=== PATIENT | male | born 1940 | race Asian ===

== ENCOUNTER 2021-01-24 17:34 | Inpatient (IN) | payer OTHER ==
[~2021-01-24] VITALS: Ht 167.6 cm; Wt 56.3 kg
[2021-01-24 19:17] LABS: Basophils # (auto) 0 10 ^3/uL (0-0.2); Basophils % (auto) 0.4 % (0.0-2.0); Eosinophils # (auto) 0 10 ^3/uL (0-0.8); Hematocrit 42.9 % (41.0-53.0); Hemoglobin 14.7 g/dL (13.5-17.5); Lymphocytes # (auto) 1.5 10 ^3/uL (0.4-5.4); Lymphocytes % (auto) 12.7 % (10.0-50.0); Mean Corpuscular Hemoglobin 33.3 pg (28.0-32.0); Mean Corpuscular Hgb Conc. 34.4 g/dL (32.0-36.0); Mean Corpuscular Volume 96.8 fL (80.0-100.0); Monocytes # (auto) 0.6 10 ^3/uL (0-1.3); Monocytes % (auto) 4.9 % (0.0-12.0); Red Blood Cells 4.43 10^6/uL (4.5-5.90); Red Cell Distribution Width 14.7 % (11.8-14.3); White Blood Cell 12.2 10^3/uL (4.4-10.8)
[2021-01-24 19:26] LABS: Albumin 2.3 g/dL (3.4-5.0); Calcium 8.6 mg/dL (8.5-10.1); Potassium 4.1 mmol/L (3.5-5.1)
[2021-01-24 19:29] LABS: BUN/Creatinine Ratio 26.3
[2021-01-24] MEDS ORDERED: ACETAMINOPHEN 650 MG RECT SUPP PR ONE (19:30)
[2021-01-24 19:39] LABS: Bilirubin, Total 0.6 mg/dL (0.2-1.0)
[2021-01-24] MEDS ORDERED: SODIUM CHLORIDE 0.9% 500 ML IV ONE (22:15)
[2021-01-24] MEDS ORDERED: PIPERACILLIN-TAZO 4.5GM 100 ML IV ONE (22:15)
[2021-01-24] MEDS ORDERED: VANCOMYCIN HCL 1000 MG VL IR ONE (22:15)
[2021-01-24 22:26] LABS: Urine Amorphous Crystal FEW /hpf (None Seen); Urine Bacteria FEW /hpf (None Seen); Urine Blood 2+ /uL (Negative); Urine Specific Gravity 1.015 (1.001-1.035); Urine WBC 138 /hpf (0 - 3); Urine WBC Clumps PRESENT /hpf (None Seen)
[2021-01-24] MEDS ORDERED: VANCOMYCIN 1GM/250ML 250 ML IV ONE (22:45)
[2021-01-24] MEDS ORDERED: NITROGLYCERIN 0.4 MG SL TAB SL PRN (23:00)
[2021-01-24] MEDS ORDERED: ONDANSETRON HCL 4 MG/2 ML VIAL IV PRN (23:00)
[2021-01-24] MEDS ORDERED: MORPHINE SULFATE INJECTION 2 MG/ML SYRG IV PRN (23:00)
[2021-01-25 05:56] LABS: Basophils # (auto) 0 10 ^3/uL (0-0.2); Basophils % (auto) 0.4 % (0.0-2.0); Eosinophils # (auto) 0 10 ^3/uL (0-0.8); Eosinophils % (auto) 0.1 % (0.0-7.0); Hematocrit 43.3 % (41.0-53.0); Hemoglobin 14.8 g/dL (13.5-17.5); Lymphocytes % (auto) 17.9 % (10.0-50.0); Mean Corpuscular Hemoglobin 33.5 pg (28.0-32.0); Mean Corpuscular Hgb Conc. 34.2 g/dL (32.0-36.0); Monocytes # (auto) 0.8 10 ^3/uL (0-1.3); Monocytes % (auto) 7.5 % (0.0-12.0); Neutrophils # (auto) 8.2 10 ^3/uL (1.6-8.6); Neutrophils % (auto) 74.1 % (37.0-80.0); Nucleated Red Blood Cells % 0.2 %; Red Blood Cells 4.42 10^6/uL (4.5-5.90); Red Cell Distribution Width 14.5 % (11.8-14.3)
[2021-01-25] MEDS ORDERED: LABETALOL HCL 5 MG/ML 4ML SYRINGE IV ONE (06:15)
[2021-01-25] MEDS: cefTRIAXone 1GM/50ML D5W 50 ML IV SCH (09:00)
[2021-01-25] MEDS: ISOSORBIDE MONONITRATE ER 60 MG TAB PO SCH (10:00)
[2021-01-25] MEDS: PANTOPRAZOLE 40 MG TAB PO SCH (10:00)
[2021-01-25] MEDS: CLOPIDOGREL BISULFATE 75 MG TAB PO SCH (10:00)
[2021-01-25] MEDS ORDERED: ASPirin 81 mg TAB PO SCH (10:00)
[2021-01-25] MEDS: METOPROLOL SUCCINATE XL 50 MG TAB PO SCH (10:00)
[2021-01-25] MEDS ORDERED: MAGN400T40 PO (10:01)
[2021-01-25] MEDS ORDERED: DONE5TAB80 PO (10:01)
[2021-01-25] MEDS ORDERED: CLOP75TA70 PO (10:01)
[2021-01-25] MEDS ORDERED: DILT90CA PO (10:01)
[2021-01-25] MEDS ORDERED: RIVA2.5T PO (10:01)
[2021-01-25] MEDS ORDERED: ISOS1TAB28 PO (10:01)
[2021-01-25] MEDS ORDERED: ASPI1TAB91 PO (10:01)
[2021-01-25] MEDS ORDERED: METO-289 PO (10:01)
[2021-01-25] MEDS ORDERED: ATOR-47 PO (10:01)
[2021-01-25] MEDS ORDERED: SODIUM CHLORIDE 0.9% 1,000 ML IV SCH (12:00)
[2021-01-25 12:22] LABS: Potassium 5.2 mmol/L (3.5-5.1); Sodium 142 mmol/L (136-145)
[2021-01-25 12:23] LABS: Anion Gap 10 (5-15); BUN/Creatinine Ratio 26.6; Blood Urea Nitrogen 65 mg/dL (7-18); Calcium 8.1 mg/dL (8.5-10.1); Carbon Dioxide 19 mmol/L (21-32); Chloride 113 mmol/L (98-107); GFR African American 33 mL/min; GFR Non-African American 27 mL/min; Glucose 148 mg/dL (74-106)
[2021-01-25] MEDS ORDERED: LACTULOSE 20Gm/30ML SOLN PO ONE (14:15)
[2021-01-25 22:00] VITALS: BP 168/95
[2021-01-25] MEDS: LACTULOSE 20Gm/30ML SOLN PO SCH (22:19)
[2021-01-25] MEDS: DONEPEZIL HYDROCHLORIDE 5 MG TAB PO SCH (22:19)
[2021-01-25] MEDS: ATORVASTATIN 20 MG TAB PO SCH (22:20)
[2021-01-26 05:00] VITALS: BP 166/105
[2021-01-26 07:00] VITALS: BP 141/60
[2021-01-26 09:00] VITALS: BP 171/101
[2021-01-26] MEDS ORDERED: LINEZOLID 600MG/300ML 300 ML IV SCH (10:00)
[2021-01-26 10:10] LABS: Basophils # (auto) 0.1 10 ^3/uL (0-0.2); Basophils % (auto) 0.7 % (0.0-2.0); Eosinophils # (auto) 0.1 10 ^3/uL (0-0.8); Eosinophils % (auto) 0.8 % (0.0-7.0); Hematocrit 43.1 % (41.0-53.0); Hemoglobin 14.4 g/dL (13.5-17.5); Lymphocytes # (auto) 2.2 10 ^3/uL (0.4-5.4); Lymphocytes % (auto) 26.5 % (10.0-50.0); Mean Corpuscular Hemoglobin 32.8 pg (28.0-32.0); Mean Corpuscular Hgb Conc. 33.5 g/dL (32.0-36.0); Mean Corpuscular Volume 97.8 fL (80.0-100.0); Monocytes # (auto) 0.6 10 ^3/uL (0-1.3); Monocytes % (auto) 7.2 % (0.0-12.0); Neutrophils # (auto) 5.4 10 ^3/uL (1.6-8.6); Neutrophils % (auto) 64.8 % (37.0-80.0); Nucleated Red Blood Cells % 0.1 %; Red Cell Distribution Width 14.2 % (11.8-14.3); White Blood Cell 8.4 10^3/uL (4.4-10.8)
[2021-01-26] MEDS: CLOPIDOGREL BISULFATE 75 MG TAB PO SCH (10:11)
[2021-01-26] MEDS: LACTULOSE 20Gm/30ML SOLN PO SCH ×2 (10:11→21:51)
[2021-01-26] MEDS: cefTRIAXone 1GM/50ML D5W 50 ML IV SCH (10:11)
[2021-01-26] MEDS: ISOSORBIDE MONONITRATE ER 60 MG TAB PO SCH (10:11)
[2021-01-26] MEDS: METOPROLOL SUCCINATE XL 50 MG TAB PO SCH (10:12)
[2021-01-26] MEDS: PANTOPRAZOLE 40 MG TAB PO SCH (10:12)
[2021-01-26 10:25] LABS: BUN/Creatinine Ratio 32.5; Calcium 8.6 mg/dL (8.5-10.1); Potassium 3.7 mmol/L (3.5-5.1)
[2021-01-26] MEDS ORDERED: amLODIPine BESYLATE 5 MG TAB PO ONE (10:45)
[2021-01-26] MEDS ORDERED: LORazepam 2MG/ML-1ML VIAL IV ONE (10:45)
[2021-01-26] MEDS: POTASSIUM CHLORIDE 20 MEQ in D5W 5% 1,000 ML IV SCH (16:05)
[2021-01-26 17:00] VITALS: BP 143/99
[2021-01-26 20:09] LABS: Cholesterol 152 mg/dL (< 200)
[2021-01-26 20:12] LABS: HDL Cholesterol 29 mg/dL (40-59); LDL Cholesterol 94 mg/dL (< 100); Triglycerides 167 mg/dL (< 150)
[2021-01-26] MEDS: ATORVASTATIN 20 MG TAB PO SCH (21:51)
[2021-01-26] MEDS: DONEPEZIL HYDROCHLORIDE 5 MG TAB PO SCH (21:51)
[2021-01-26] MEDS: MEROPENEM 1GM IVPB 100 ML IV SCH (21:51)
[2021-01-26 22:00] VITALS: BP 142/93
[2021-01-27] MEDS: POTASSIUM CHLORIDE 20 MEQ in D5W 5% 1,000 ML IV SCH ×2 (02:28→03:00)
[2021-01-27 05:00] VITALS: BP 145/91
[2021-01-27 07:22] LABS: Basophils # (auto) 0 10 ^3/uL (0-0.2); Basophils % (auto) 0.5 % (0.0-2.0); Eosinophils # (auto) 0.1 10 ^3/uL (0-0.8); Eosinophils % (auto) 0.9 % (0.0-7.0); Hematocrit 40.5 % (41.0-53.0); Hemoglobin 13.9 g/dL (13.5-17.5); Lymphocytes % (auto) 27.3 % (10.0-50.0); Mean Corpuscular Hemoglobin 32.9 pg (28.0-32.0); Mean Corpuscular Hgb Conc. 34.3 g/dL (32.0-36.0); Mean Corpuscular Volume 96.1 fL (80.0-100.0); Monocytes # (auto) 0.5 10 ^3/uL (0-1.3); Monocytes % (auto) 6.3 % (0.0-12.0); Neutrophils # (auto) 4.8 10 ^3/uL (1.6-8.6); Nucleated Red Blood Cells % 0.1 %; Red Blood Cells 4.21 10^6/uL (4.5-5.90); Red Cell Distribution Width 13.9 % (11.8-14.3); White Blood Cell 7.4 10^3/uL (4.4-10.8)
[2021-01-27 07:37] LABS: BUN/Creatinine Ratio 32.6; Calcium 8.4 mg/dL (8.5-10.1); Potassium 3.8 mmol/L (3.5-5.1)
[2021-01-27] MEDS: MEROPENEM 1GM IVPB 100 ML IV SCH ×2 (10:09→22:37)
[2021-01-27] MEDS: ENOXAPARIN SOD 40 MG/0.4 ML SYRINGE SC SCH (10:09)
[2021-01-27] MEDS: PANTOPRAZOLE 40 MG TAB PO SCH (10:10)
[2021-01-27] MEDS: ISOSORBIDE MONONITRATE ER 60 MG TAB PO SCH (10:10)
[2021-01-27] MEDS: CLOPIDOGREL BISULFATE 75 MG TAB PO SCH (10:10)
[2021-01-27] MEDS: METOPROLOL SUCCINATE XL 50 MG TAB PO SCH (10:10)
[2021-01-27] MEDS: amLODIPine BESYLATE 5 MG TAB PO SCH (10:10)
[2021-01-27 13:00] VITALS: BP 106/75
[2021-01-27 14:05] LABS: INR 1.07 (0.9-1.15); Partial Thromboplastin Time 39.9 sec (23.6-33.0)
[2021-01-27 17:00] VITALS: BP 143/91
[2021-01-27 22:00] VITALS: BP 138/82
[2021-01-27] MEDS: DONEPEZIL HYDROCHLORIDE 5 MG TAB PO SCH (22:38)
[2021-01-27] MEDS: ATORVASTATIN 20 MG TAB PO SCH (22:38)
[2021-01-28 05:00] VITALS: BP 137/78
[2021-01-28] MEDS: POTASSIUM CHLORIDE 20 MEQ in D5W 5% 1,000 ML IV SCH ×3 (05:21→18:52)
[2021-01-28 06:18] LABS: Basophils # (auto) 0.1 10 ^3/uL (0-0.2); Basophils % (auto) 0.8 % (0.0-2.0); Eosinophils # (auto) 0.1 10 ^3/uL (0-0.8); Hematocrit 41.7 % (41.0-53.0); Hemoglobin 14.2 g/dL (13.5-17.5); Lymphocytes # (auto) 2.1 10 ^3/uL (0.4-5.4); Lymphocytes % (auto) 29.6 % (10.0-50.0); Mean Corpuscular Hemoglobin 32.5 pg (28.0-32.0); Mean Corpuscular Hgb Conc. 34.1 g/dL (32.0-36.0); Mean Corpuscular Volume 95.5 fL (80.0-100.0); Monocytes # (auto) 0.6 10 ^3/uL (0-1.3); Monocytes % (auto) 7.9 % (0.0-12.0); Neutrophils # (auto) 4.2 10 ^3/uL (1.6-8.6); Neutrophils % (auto) 59.7 % (37.0-80.0); Nucleated Red Blood Cells % 0.1 %; Red Blood Cells 4.37 10^6/uL (4.5-5.90); Red Cell Distribution Width 13.9 % (11.8-14.3)
[2021-01-28 06:38] LABS: Potassium 3.7 mmol/L (3.5-5.1)
[2021-01-28 06:42] LABS: Albumin 2.1 g/dL (3.4-5.0); BUN/Creatinine Ratio 23.9
[2021-01-28 06:45] LABS: Bilirubin, Total 0.7 mg/dL (0.2-1.0); Total Protein 6.1 g/dL (6.4-8.2)
[2021-01-28 07:16] LABS: INR 1.03 (0.9-1.15)
[2021-01-28 09:00] VITALS: BP 153/89
[2021-01-28] MEDS: MEROPENEM 1GM IVPB 100 ML IV SCH ×2 (10:33→22:24)
[2021-01-28] MEDS: ISOSORBIDE MONONITRATE ER 60 MG TAB PO SCH (10:37)
[2021-01-28] MEDS: amLODIPine BESYLATE 5 MG TAB PO SCH (10:38)
[2021-01-28] MEDS: CLOPIDOGREL BISULFATE 75 MG TAB PO SCH (10:38)
[2021-01-28] MEDS: METOPROLOL SUCCINATE XL 50 MG TAB PO SCH (10:39)
[2021-01-28] MEDS: PANTOPRAZOLE 40 MG TAB PO SCH (10:39)
[2021-01-28] MEDS: ENOXAPARIN SOD 40 MG/0.4 ML SYRINGE SC SCH (10:40)
[2021-01-28 13:00] VITALS: BP 143/86
[2021-01-28 17:00] VITALS: BP 140/85
[2021-01-28 22:00] VITALS: BP 120/78
[2021-01-28] MEDS: DONEPEZIL HYDROCHLORIDE 5 MG TAB PO SCH (22:24)
[2021-01-28] MEDS: ATORVASTATIN 20 MG TAB PO SCH (22:24)
[2021-01-29 05:00] VITALS: BP 133/84
[2021-01-29 08:25] LABS: Potassium 5.3 mmol/L (3.5-5.1)
[2021-01-29 08:29] LABS: BUN/Creatinine Ratio 20.3; Calcium 7.6 mg/dL (8.5-10.1)
[2021-01-29 09:00] VITALS: BP 138/99
[2021-01-29] MEDS: METOPROLOL SUCCINATE XL 50 MG TAB PO SCH (10:00)
[2021-01-29] MEDS: CLOPIDOGREL BISULFATE 75 MG TAB PO SCH (10:00)
[2021-01-29] MEDS: PANTOPRAZOLE 40 MG TAB PO SCH (10:00)
[2021-01-29] MEDS: ISOSORBIDE MONONITRATE ER 60 MG TAB PO SCH (10:00)
[2021-01-29] MEDS: amLODIPine BESYLATE 5 MG TAB PO SCH (10:00)
[2021-01-29] MEDS: ENOXAPARIN SOD 40 MG/0.4 ML SYRINGE SC SCH (10:00)
[2021-01-29 10:03] LABS: Folate (Folic Acid) 9.73 ng/mL (5.38-24)
[2021-01-29 11:38] LABS: Basophils # (auto) 0 10 ^3/uL (0-0.2); Basophils % (auto) 0.4 % (0.0-2.0); Eosinophils # (auto) 0.2 10 ^3/uL (0-0.8); Eosinophils % (auto) 2.7 % (0.0-7.0); Hematocrit 37.3 % (41.0-53.0); Hemoglobin 13.2 g/dL (13.5-17.5); Lymphocytes # (auto) 2.2 10 ^3/uL (0.4-5.4); Mean Corpuscular Hemoglobin 33.4 pg (28.0-32.0); Mean Corpuscular Hgb Conc. 35.4 g/dL (32.0-36.0); Mean Corpuscular Volume 94.4 fL (80.0-100.0); Monocytes # (auto) 0.4 10 ^3/uL (0-1.3); Monocytes % (auto) 4.5 % (0.0-12.0); Neutrophils # (auto) 5.4 10 ^3/uL (1.6-8.6); Neutrophils % (auto) 65.4 % (37.0-80.0); Nucleated Red Blood Cells % 0.1 %; Red Blood Cells 3.95 10^6/uL (4.5-5.90); Red Cell Distribution Width 13.6 % (11.8-14.3); White Blood Cell 8.3 10^3/uL (4.4-10.8)
[2021-01-29] MEDS: AMPICILLIN INJ 1 GM in SODIUM CHL 0.9% 50 ML IV SCH ×2 (12:00→18:04)
[2021-01-29 13:00] VITALS: BP 140/82
[2021-01-29] MEDS ORDERED: fentaNYL CITRATE 100 MCG/2 ML VL IV ONE (14:00)
[2021-01-29] MEDS ORDERED: MIDAZOLAM HCL 2MG/2ML 2ml VIAL (1mg/ml) IV ONE (14:00)
[2021-01-29 17:00] VITALS: BP 139/79
[2021-01-29] MEDS ORDERED: RIVAROXABAN 20 MG TAB PO SCH (18:00)
[2021-01-29 22:00] VITALS: BP 150/94
[2021-01-29] MEDS: DONEPEZIL HYDROCHLORIDE 5 MG TAB PO SCH (22:00)
[2021-01-29] MEDS: APIXABAN 2.5 MG TAB PO SCH (22:00)
[2021-01-29] MEDS: ATORVASTATIN 20 MG TAB PO SCH (22:00)
[2021-01-30] MEDS: AMPICILLIN INJ 1 GM in SODIUM CHL 0.9% 50 ML IV SCH ×5 (00:34→23:27)
[2021-01-30 05:00] VITALS: BP 139/86
[2021-01-30 09:00] VITALS: BP 154/82
[2021-01-30] MEDS: APIXABAN 2.5 MG TAB PO SCH ×2 (10:00→21:52)
[2021-01-30] MEDS: ACETAMINOPHEN 325 MG TAB PO PRN (10:28)
[2021-01-30] MEDS: METOPROLOL SUCCINATE XL 50 MG TAB PO SCH (10:51)
[2021-01-30] MEDS: ISOSORBIDE MONONITRATE ER 60 MG TAB PO SCH (10:51)
[2021-01-30] MEDS: PANTOPRAZOLE 40 MG TAB PO SCH (10:51)
[2021-01-30] MEDS: amLODIPine BESYLATE 5 MG TAB PO SCH (10:52)
[2021-01-30 13:00] VITALS: BP 112/66
[2021-01-30 16:51] VITALS: BP 102/68
[2021-01-30] MEDS: DONEPEZIL HYDROCHLORIDE 5 MG TAB PO SCH (21:51)
[2021-01-30] MEDS: ATORVASTATIN 20 MG TAB PO SCH (21:52)
[2021-01-30 21:53] VITALS: BP 119/71
[2021-01-31 05:05] VITALS: BP 117/77
[2021-01-31] MEDS: AMPICILLIN INJ 1 GM in SODIUM CHL 0.9% 50 ML IV SCH ×4 (05:15→23:55)
[2021-01-31 06:52] LABS: Potassium 4.1 mmol/L (3.5-5.1)
[2021-01-31 06:56] LABS: BUN/Creatinine Ratio 21.5; Calcium 8.2 mg/dL (8.5-10.1)
[2021-01-31] MEDS: ISOSORBIDE MONONITRATE ER 60 MG TAB PO SCH (10:05)
[2021-01-31] MEDS: PANTOPRAZOLE 40 MG TAB PO SCH (10:05)
[2021-01-31] MEDS: APIXABAN 2.5 MG TAB PO SCH ×2 (10:06→21:51)
[2021-01-31] MEDS: amLODIPine BESYLATE 5 MG TAB PO SCH (10:06)
[2021-01-31] MEDS: METOPROLOL SUCCINATE XL 50 MG TAB PO SCH (10:06)
[2021-01-31] MEDS: ACETAMINOPHEN 325 MG TAB PO PRN (11:39)
[2021-01-31] MEDS: HYDROcodone-ACET 5/325MG TAB PO PRN (14:40)
[2021-01-31] MEDS ORDERED: LIDOCAINE 5% TOPICAL PATCH TOP ONE (15:15)
[2021-01-31] MEDS: DONEPEZIL HYDROCHLORIDE 5 MG TAB PO SCH (21:50)
[2021-01-31] MEDS: ATORVASTATIN 20 MG TAB PO SCH (21:51)
[2021-01-31 22:00] VITALS: BP 118/77
[2021-02-01] MEDS: AMPICILLIN INJ 1 GM in SODIUM CHL 0.9% 50 ML IV SCH ×3 (05:19→17:48)
[2021-02-01 09:00] VITALS: BP 139/82
[2021-02-01] MEDS ORDERED: HALOPERIDOL LACTATE 5 MG/ML INJ VIAL IM ONE (10:00)
[2021-02-01] MEDS ORDERED: HALOPERIDOL LACTATE 5 MG/ML INJ VIAL ONE (10:00)
[2021-02-01] MEDS: ISOSORBIDE MONONITRATE ER 60 MG TAB PO SCH (10:55)
[2021-02-01] MEDS: METOPROLOL SUCCINATE XL 50 MG TAB PO SCH (10:56)
[2021-02-01] MEDS: amLODIPine BESYLATE 5 MG TAB PO SCH (10:56)
[2021-02-01] MEDS: PANTOPRAZOLE 40 MG TAB PO SCH (10:56)
[2021-02-01] MEDS: APIXABAN 2.5 MG TAB PO SCH ×2 (10:56→22:19)
[2021-02-01] MEDS: LIDOCAINE 5% TOPICAL PATCH TOP SCH (10:56)
[2021-02-01 13:00] VITALS: BP 143/87
[2021-02-01] MEDS ORDERED: HALOPERIDOL 1 MG TAB PO PRN (14:45)
[2021-02-01 17:00] VITALS: BP 129/79
[2021-02-01] MEDS: ACETAMINOPHEN 325 MG TAB PO PRN (19:55)
[2021-02-01 22:00] VITALS: BP 108/67
[2021-02-01] MEDS: ATORVASTATIN 20 MG TAB PO SCH (22:19)
[2021-02-01] MEDS: DONEPEZIL HYDROCHLORIDE 5 MG TAB PO SCH (22:19)
[2021-02-02] MEDS: AMPICILLIN INJ 1 GM in SODIUM CHL 0.9% 50 ML IV SCH ×4 (00:28→18:33)
[2021-02-02 05:00] VITALS: BP 116/74
[2021-02-02] MEDS: LACTULOSE 20Gm/30ML SOLN PO SCH (10:38)
[2021-02-02] MEDS: APIXABAN 2.5 MG TAB PO SCH ×2 (10:38→21:56)
[2021-02-02] MEDS: LIDOCAINE 5% TOPICAL PATCH TOP SCH (10:39)
[2021-02-02] MEDS: ISOSORBIDE MONONITRATE ER 60 MG TAB PO SCH (10:39)
[2021-02-02] MEDS: METOPROLOL SUCCINATE XL 50 MG TAB PO SCH (10:39)
[2021-02-02] MEDS: PANTOPRAZOLE 40 MG TAB PO SCH (10:39)
[2021-02-02] MEDS: amLODIPine BESYLATE 5 MG TAB PO SCH (10:39)
[2021-02-02] MEDS: HYDROcodone-ACET 5/325MG TAB PO PRN ×2 (13:04→21:04)
[2021-02-02] MEDS: DONEPEZIL HYDROCHLORIDE 5 MG TAB PO SCH (21:55)
[2021-02-02] MEDS: ATORVASTATIN 20 MG TAB PO SCH (21:56)
[2021-02-02 22:00] VITALS: BP 131/82
[2021-02-03] MEDS: AMPICILLIN INJ 1 GM in SODIUM CHL 0.9% 50 ML IV SCH ×4 (00:36→18:29)
[2021-02-03 05:00] VITALS: BP 140/78
[2021-02-03 09:00] VITALS: BP 131/90
[2021-02-03] MEDS: LACTULOSE 20Gm/30ML SOLN PO SCH (09:51)
[2021-02-03] MEDS: APIXABAN 2.5 MG TAB PO SCH ×2 (09:51→21:15)
[2021-02-03] MEDS: amLODIPine BESYLATE 5 MG TAB PO SCH (09:52)
[2021-02-03] MEDS: METOPROLOL SUCCINATE XL 50 MG TAB PO SCH (09:52)
[2021-02-03] MEDS: ISOSORBIDE MONONITRATE ER 60 MG TAB PO SCH (09:53)
[2021-02-03] MEDS: PANTOPRAZOLE 40 MG TAB PO SCH (09:53)
[2021-02-03] MEDS: LIDOCAINE 5% TOPICAL PATCH TOP SCH (09:53)
[2021-02-03 13:00] VITALS: BP 139/88
[2021-02-03] MEDS: HYDROcodone-ACET 5/325MG TAB PO PRN ×2 (13:01→22:13)
[2021-02-03 17:00] VITALS: BP 136/92
[2021-02-03] MEDS: DONEPEZIL HYDROCHLORIDE 5 MG TAB PO SCH (21:15)
[2021-02-03] MEDS: ATORVASTATIN 20 MG TAB PO SCH (21:15)
[2021-02-03 22:00] VITALS: BP 127/87
[2021-02-04] MEDS: AMPICILLIN INJ 1 GM in SODIUM CHL 0.9% 50 ML IV SCH ×5 (00:03→23:46)
[2021-02-04 05:00] VITALS: BP 130/80
[2021-02-04 09:00] VITALS: BP 153/90
[2021-02-04] MEDS: LACTULOSE 20Gm/30ML SOLN PO SCH (09:31)
[2021-02-04] MEDS: APIXABAN 2.5 MG TAB PO SCH ×2 (09:32→21:33)
[2021-02-04] MEDS: METOPROLOL SUCCINATE XL 50 MG TAB PO SCH (09:32)
[2021-02-04] MEDS: amLODIPine BESYLATE 5 MG TAB PO SCH (09:32)
[2021-02-04] MEDS: PANTOPRAZOLE 40 MG TAB PO SCH (09:32)
[2021-02-04] MEDS: LIDOCAINE 5% TOPICAL PATCH TOP SCH (09:33)
[2021-02-04] MEDS: ISOSORBIDE MONONITRATE ER 60 MG TAB PO SCH (09:33)
[2021-02-04 13:00] VITALS: BP 129/69
[2021-02-04] MEDS: HYDROcodone-ACET 5/325MG TAB PO PRN (15:10)
[2021-02-04 17:00] VITALS: BP 131/89
[2021-02-04] MEDS: ATORVASTATIN 20 MG TAB PO SCH (21:32)
[2021-02-04] MEDS: DONEPEZIL HYDROCHLORIDE 5 MG TAB PO SCH (21:32)
[2021-02-04 22:00] VITALS: BP 126/84
[2021-02-05] MEDS: HYDROcodone-ACET 5/325MG TAB PO PRN ×3 (04:31→22:02)
[2021-02-05 04:40] VITALS: BP 138/89
[2021-02-05] MEDS: AMPICILLIN INJ 1 GM in SODIUM CHL 0.9% 50 ML IV SCH ×4 (05:38→23:31)
[2021-02-05 08:50] VITALS: BP 127/79
[2021-02-05] MEDS: LACTULOSE 20Gm/30ML SOLN PO SCH (10:00)
[2021-02-05] MEDS: LIDOCAINE 5% TOPICAL PATCH TOP SCH (10:00)
[2021-02-05] MEDS: ISOSORBIDE MONONITRATE ER 60 MG TAB PO SCH (10:00)
[2021-02-05] MEDS: METOPROLOL SUCCINATE XL 50 MG TAB PO SCH (10:00)
[2021-02-05] MEDS: APIXABAN 2.5 MG TAB PO SCH ×2 (10:00→22:02)
[2021-02-05] MEDS: PANTOPRAZOLE 40 MG TAB PO SCH (10:00)
[2021-02-05] MEDS: amLODIPine BESYLATE 5 MG TAB PO SCH (10:00)
[2021-02-05 12:21] VITALS: BP 132/84
[2021-02-05 16:28] VITALS: BP 130/79
[2021-02-05 22:00] VITALS: BP 155/90
[2021-02-05] MEDS ORDERED: QUEtiapine FUMARATE 25 MG TAB PO SCH (22:00)
[2021-02-05] MEDS: ATORVASTATIN 20 MG TAB PO SCH (22:02)
[2021-02-05] MEDS: DONEPEZIL HYDROCHLORIDE 5 MG TAB PO SCH (22:02)
[2021-02-06 05:00] VITALS: BP 158/93
[2021-02-06] MEDS: AMPICILLIN INJ 1 GM in SODIUM CHL 0.9% 50 ML IV SCH ×3 (05:32→17:37)
[2021-02-06] MEDS: HYDROcodone-ACET 5/325MG TAB PO PRN (06:48)
[2021-02-06 08:34] VITALS: BP 166/106
[2021-02-06] MEDS: APIXABAN 2.5 MG TAB PO SCH ×2 (10:00→21:42)
[2021-02-06] MEDS: LACTULOSE 20Gm/30ML SOLN PO SCH (10:00)
[2021-02-06] MEDS: LIDOCAINE 5% TOPICAL PATCH TOP SCH (10:00)
[2021-02-06] MEDS: PANTOPRAZOLE 40 MG TAB PO SCH (10:00)
[2021-02-06] MEDS: METOPROLOL SUCCINATE XL 50 MG TAB PO SCH (10:00)
[2021-02-06] MEDS: ISOSORBIDE MONONITRATE ER 60 MG TAB PO SCH (10:00)
[2021-02-06] MEDS: amLODIPine BESYLATE 5 MG TAB PO SCH (10:00)
[2021-02-06 13:00] VITALS: BP 125/78
[2021-02-06 17:04] VITALS: BP 132/69
[2021-02-06] MEDS: ATORVASTATIN 20 MG TAB PO SCH (21:42)
[2021-02-06] MEDS: DONEPEZIL HYDROCHLORIDE 5 MG TAB PO SCH (21:42)
[2021-02-06 22:00] VITALS: BP 147/93
[2021-02-07 05:18] VITALS: BP 139/90
[2021-02-07] MEDS: AMPICILLIN INJ 1 GM in SODIUM CHL 0.9% 50 ML IV SCH ×4 (05:37→13:41)
[2021-02-07 08:00] VITALS: BP 148/82
[2021-02-07 09:00] VITALS: BP 134/92
[2021-02-07] MEDS: LIDOCAINE 5% TOPICAL PATCH TOP SCH (10:48)
[2021-02-07] MEDS: ISOSORBIDE MONONITRATE ER 60 MG TAB PO SCH (10:49)
[2021-02-07] MEDS: PANTOPRAZOLE 40 MG TAB PO SCH (10:50)
[2021-02-07] MEDS: amLODIPine BESYLATE 5 MG TAB PO SCH (10:50)
[2021-02-07] MEDS: APIXABAN 2.5 MG TAB PO SCH ×2 (10:50→21:20)
[2021-02-07] MEDS: LACTULOSE 20Gm/30ML SOLN PO SCH (10:50)
[2021-02-07] MEDS: METOPROLOL SUCCINATE XL 50 MG TAB PO SCH (10:50)
[2021-02-07 13:00] VITALS: BP 132/88
[2021-02-07 17:00] VITALS: BP 146/81
[2021-02-07] MEDS: DONEPEZIL HYDROCHLORIDE 5 MG TAB PO SCH (21:20)
[2021-02-07] MEDS: ATORVASTATIN 20 MG TAB PO SCH (21:23)
[2021-02-07 22:00] VITALS: BP 136/88
[2021-02-08 05:00] VITALS: BP 138/78
[2021-02-08 08:00] VITALS: BP 119/76
[2021-02-08 08:44] VITALS: BP 119/76
[2021-02-08] MEDS: ISOSORBIDE MONONITRATE ER 60 MG TAB PO SCH (11:27)
[2021-02-08] MEDS: amLODIPine BESYLATE 5 MG TAB PO SCH (11:27)
[2021-02-08] MEDS: APIXABAN 2.5 MG TAB PO SCH ×2 (11:27→21:51)
[2021-02-08] MEDS: METOPROLOL SUCCINATE XL 50 MG TAB PO SCH (11:28)
[2021-02-08] MEDS: PANTOPRAZOLE 40 MG TAB PO SCH (11:28)
[2021-02-08 12:31] VITALS: BP 120/70
[2021-02-08 17:16] VITALS: BP 138/66
[2021-02-08] MEDS: DONEPEZIL HYDROCHLORIDE 5 MG TAB PO SCH (21:50)
[2021-02-08] MEDS: ATORVASTATIN 20 MG TAB PO SCH (21:51)
[2021-02-08 22:00] VITALS: BP 113/79
[2021-02-09 05:00] VITALS: BP 116/72
[2021-02-09] MEDS: PANTOPRAZOLE 40 MG TAB PO SCH (08:52)
[2021-02-09] MEDS: APIXABAN 2.5 MG TAB PO SCH ×2 (08:52→21:41)
[2021-02-09] MEDS: amLODIPine BESYLATE 5 MG TAB PO SCH (08:55)
[2021-02-09] MEDS: ISOSORBIDE MONONITRATE ER 60 MG TAB PO SCH (08:55)
[2021-02-09] MEDS: METOPROLOL SUCCINATE XL 50 MG TAB PO SCH (08:56)
[2021-02-09 09:00] VITALS: BP 117/62
[2021-02-09 13:00] VITALS: BP 130/79
[2021-02-09 16:48] VITALS: BP 147/80
[2021-02-09] MEDS: DONEPEZIL HYDROCHLORIDE 5 MG TAB PO SCH (21:40)
[2021-02-09] MEDS ORDERED: ATORVASTATIN 20 MG TAB PO SCH (22:00)
[2021-02-09 22:11] VITALS: BP 129/81
[2021-02-10 05:08] VITALS: BP 135/91
[2021-02-10 06:47] LABS: Basophils # (auto) 0.1 10 ^3/uL (0-0.2); Basophils % (auto) 1.3 % (0.0-2.0); Eosinophils # (auto) 0.2 10 ^3/uL (0-0.8); Eosinophils % (auto) 3.4 % (0.0-7.0); Hematocrit 40.6 % (41.0-53.0); Hemoglobin 13.6 g/dL (13.5-17.5); Lymphocytes # (auto) 1.9 10 ^3/uL (0.4-5.4); Lymphocytes % (auto) 32.7 % (10.0-50.0); Mean Corpuscular Hemoglobin 32.1 pg (28.0-32.0); Mean Corpuscular Hgb Conc. 33.5 g/dL (32.0-36.0); Mean Corpuscular Volume 95.9 fL (80.0-100.0); Monocytes # (auto) 0.4 10 ^3/uL (0-1.3); Monocytes % (auto) 6.9 % (0.0-12.0); Neutrophils # (auto) 3.3 10 ^3/uL (1.6-8.6); Neutrophils % (auto) 55.7 % (37.0-80.0); Nucleated Red Blood Cells % 0.1 %; Red Blood Cells 4.23 10^6/uL (4.5-5.90); Red Cell Distribution Width 14.3 % (11.8-14.3); White Blood Cell 5.9 10^3/uL (4.4-10.8)
[2021-02-10 06:53] LABS: Potassium 4.1 mmol/L (3.5-5.1)
[2021-02-10 06:58] LABS: BUN/Creatinine Ratio 20.1; Calcium 8.3 mg/dL (8.5-10.1); Magnesium 2.4 mg/dL (1.6-2.6); Phosphorus 2.6 mg/dL (2.5-4.90)
[2021-02-10 09:00] VITALS: BP 127/71
[2021-02-10] MEDS: APIXABAN 2.5 MG TAB PO SCH (10:32)
[2021-02-10] MEDS: amLODIPine BESYLATE 5 MG TAB PO SCH (10:33)
[2021-02-10] MEDS: ISOSORBIDE MONONITRATE ER 60 MG TAB PO SCH (10:33)
[2021-02-10] MEDS: METOPROLOL SUCCINATE XL 50 MG TAB PO SCH (10:34)
[2021-02-10] MEDS: PANTOPRAZOLE 40 MG TAB PO SCH (10:34)
[2021-02-10 12:51] VITALS: BP 124/83
[2021-02-10] MEDS: HYDROcodone-ACET 5/325MG TAB PO PRN (13:33)
== END 2021-02-10 16:33 | DRG 871 ==
LOC: EDBD 17:34 → ER 17:34 → TELE 22:49 → TELE-WESTW 01-25 20:10
PROVIDERS: ADMIT Nurse Practitioner; ATTEND Internal Medicine Nephrology
PROC: B246ZZ4 Ultrasonography of Right and Left Heart, Transesophageal (ICD-10-PCS; principal; 2021-01-29)
DX: A41.81 Sepsis due to Enterococcus (principal); I63.9 Cerebral infarction, unspecified; E43 Unspecified severe protein-calorie malnutrition; I21.A1 Myocardial infarction type 2; G93.41 Metabolic encephalopathy; N17.0 Acute kidney failure with tubular necrosis; N39.0 Urinary tract infection, site not specified; I69.354 Hemiplegia and hemiparesis following cerebral infarction affecting left non-dominant side; Z68.1 Body mass index [BMI] 19.9 or less, adult; Q21.1 Atrial septal defect; E78.5 Hyperlipidemia, unspecified; E87.5 Hyperkalemia; I51.3 Intracardiac thrombosis, not elsewhere classified; E86.0 Dehydration; N18.31 Chronic kidney disease, stage 3a; I12.9 Hypertensive chronic kidney disease with stage 1 through stage 4 chronic kidney disease, or unspecified chronic kidney disease; Z20.822 Contact with and (suspected) exposure to COVID-19; E11.22 Type 2 diabetes mellitus with diabetic chronic kidney disease; F02.80 Dementia in other diseases classified elsewhere, unspecified severity, without behavioral disturbance, psychotic disturbance, mood disturbance, and anxiety; B95.2 Enterococcus as the cause of diseases classified elsewhere; F17.200 Nicotine dependence, unspecified, uncomplicated; G30.9 Alzheimer's disease, unspecified; I25.10 Atherosclerotic heart disease of native coronary artery without angina pectoris; Z74.01 Bed confinement status; Z79.02 Long term (current) use of antithrombotics/antiplatelets; Z79.899 Other long term (current) drug therapy; Z95.1 Presence of aortocoronary bypass graft
CPT/HCPCS: 36415; 70450; 70551; 71045; 72125; 73200; 74176; 80048; 80053; 80061; 81001; 82607; 82746; 83036; 83605; 83735; 83880; 84100; 84443; 84484; 85025; 85610; 85730; 86850; 86900; 86901; 87040; 87077; 87086; 87088; 87186; 87426; 93005; 93306; 93312; 93886; 95819; 96365; 96375; 97110; 97163; 97530; 99152; G0378; J0696; J2185; J2250; J2543; J3490